=== PATIENT | female | born 1985 | race Hispanic/Latino ===

== ENCOUNTER 2017-12-04 22:45 | Inpatient (IN) | payer OTHER, MEDICAID ==
[2017-12-05] MEDS ORDERED: STADOL IV PRN (00:27)
[2017-12-05] MEDS ORDERED: ePHEDrine SULFATE IV PRN ×2 (00:27→03:13)
[2017-12-05] MEDS ORDERED: BRETHINE IVP PRN (00:27)
[2017-12-05] MEDS ORDERED: PHENERGAN PO PRN ×2 (00:27→09:09)
[2017-12-05] MEDS ORDERED: BRETHINE SUB-Q PRN (00:27)
[2017-12-05] MEDS ORDERED: XYLOCAINE 2% INFILTRATI ONE (00:27)
--- NOTE | 2017-12-05 00:27 | History and Physical Report ---
History of Present Illness Date of examination: 12/05/17 Date of admission: 12/04/17 23:26 History of present illness: Patient presented to labor and delivery for complaints of regular contractions since the morning of admission now intervals approximately 5-6 minutes. 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 no EDC Calculations EDC Confirmation: 12/06/2017 Past History : 5 Term Births: 3 Premature Births: 0 Living Children: 3 Para: 3 Mult. Births: 0 Prev : 0 Aborta: 1 Elect. Ab: 0 Spont. Ab: 1 # 1 Delivery date: 2007 Weeks Gestation: 40+5 labor: no Delivery type: Infant Sex: Female weight: 7#14 Comments: no complications # 2 Delivery date: 2009 Weeks Gestation: 10 Delivery type: SAB Comments: MAB, medically managed, no D&C # 3 Delivery date: 2010 Weeks Gestation: 40 labor: no Delivery type: Infant Sex: Female weight: 8#11 Comments: EIF and short limbs - no problems # 4 Delivery date: 02/04/2016 Weeks Gestation: 39 Delivery type: Vaginal Anesthesia type: epidural Delivery location: [facility] Sex: male weight: 8.38 Comments: none Past Medical History: Negative Past Medical History abnomal pap 2016 Past Medical History Abnormal PAP: positive, 2016 Family Hx: Family History of Hypertension - mother and father Social Hx: Patient is engaged Patient is single Smoking History: denies ETOH, drugs or smoking Infection History Hx of STD: none HIV Risk Eval: low risk Hepatitis B Risk Eval: low risk Personal hx. of genital herpes: no Partner hx. of genital herpes: no Rash, Viral, or Febrile illness since last LMP? no Varicella/Chicken Pox Status: Previous Disease Genetic History Congenital Heart Defect: Mom: no Dad: no Camila Disease: Mom: no Dad: no Thalassemia Mom: no Dad: no Neural Tube Defect Mom: yes Dad: no Comments: sister - clft Down's Syndrome Mom: no Dad: no Joe-Sachs Mom: no Dad: no Sickle Cell Disease/Trait Mom: no Dad: no Hemophilia Mom: no Dad: no Muscular Dystrophy Mom: no Dad: no Cystic Fibrosis Mom: no Dad: no Jasper Chorea Mom: no Dad: no Mental Retardation Mom: no Dad: no Fragile X Mom: no Dad: no Other Genetic/Chromosomal Disorder Mom: no Dad: no Child w/other defect Mom: no Dad: no Enviromental Exposures Xray Exposure: yes Medication, drug, or alcohol use since LMP: no Chemical/Other Exposure: no Exposure to Cat Liter: no Hx of Parvovirus (Fifth Disease): no Occupational Exposure to Children: none Current Allergies (reviewed today): No known allergies Past History Past Medical History: other (see HPI) Past Surgical History: other (see HPI) 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 (see 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) Family/Genetic History: other (see HPI) Social history: full code - Obstetrical History Expected Date of Delivery: 12/06/17 Actual Gestation: 39 Week(s) 6 Day(s) : 5 Para: 3 Hx # Term Pregnancies: 3 Number of Pregnancies: 0 Spontaneous Abortions: 1 Induced : 0 Number of Living Children: 3 Medications and Allergies Allergies Allergy/AdvReac Type Severity Reaction Status Date / Time No Known Allergies Allergy Verified 02/04/16 12:06 Home Medications Medication Instructions Recorded Confirmed Last Taken Type Ibuprofen [Motrin 800 MG tab] 800 mg PO TID PRN #30 tablet 02/04/16 Unknown Rx Lidocain2.5%/Prilocai2.5% [Emla] 5 gm TP PRN #1 tube 02/04/16 Unknown Rx Vit Calc,Iron,Folic 1 each PO DAILY 02/04/16 02/04/16 02/03/16 23:00 History [ Vitamins] - Vital Signs Vital signs: Vital Signs Temp Pulse Resp BP 98.6 F 76 16 108/61 12/04/17 23:07 12/04/17 23:07 12/04/17 23:07 12/04/17 23:07 Temp Pulse Resp BP Pulse Ox 98.6 F 84 16 109/63 97 12/04/17 23:07 12/05/17 00:24 12/04/17 23:07 12/05/17 00:20 12/05/17 00:24 - Physical Exam Breasts: Positive: deferred Cardiovascular: Regular rate Lungs: Positive: Normal air movement Abdomen: Positive: normal appearance, soft Genitourinary (Female): Positive: normal external genitalia, normal perenium Vulva: both: normal Vagina: Positive: normal moisture Uterus: Positive: enlarged Anus/Rectum: Positive: normal perianal skin Extremities: Positive: edema Deep Tendon Reflex Grade: Normal +2 - Obstetrical FHR: category 1 Uterine Contraction Pattern: Regular Uterine Tone Measurement Phase: Resting Uterine Contraction Intensity: Moderate Results Result Diagrams: 12/05/17 00:00 All other labs normal. Assessment and Plan - Patient Problems (1) 39 weeks gestation of Current Visit: No Status: Acute (2) Active labor at term Current Visit: No Status: Acute Plan to address problem: Admit and follow normal labor protocol will augment if necessary
[2017-12-05 00:40] LABS: Hematocrit 32.1 % (30.3-42.9); Hemoglobin 11.2 gm/dl (10.1-14.3); Mean Corpuscular HGB Conc 35 % (30-34); Mean Corpuscular Hemoglobin 27 pg (28-32); Mean Corpuscular Volume 79 fl (79-97); Platelet Count 272 K/mm3 (140-440); Red Blood Count 4.07 M/mm3 (3.65-5.03); Red Cell Distribution Width 17.6 % (13.2-15.2)
[2017-12-05] MEDS: LACTATED RINGERS 1,000 ML IV SCH ×2 (00:54→03:26)
[2017-12-05] MEDS ORDERED: PITOCin/NS 20 UNIT/1000ML DRIP 20 UNITS/1,000 ML BAG IV SCH (01:00)
[2017-12-05] MEDS ORDERED: NARCAN 2 MG/2 ML IV PRN (03:13)
--- NOTE | 2017-12-05 03:14 | Anesthesia Consultation ---
Anesthesia Consult and Med Hx Date of service: 12/05/17 - Airway Anesthetic Teeth Evaluation: Good ROM Head & Neck: Adequate Mental/Hyoid Distance: Adequate Mallampati Class: Class II Intubation Access Assessment: Probably Good - Pulmonary Exam CTA: Yes - Cardiac Exam Cardiac Exam: RRR - Pre-Operative Health Status ASA Pre-Surgery Classification: ASA2 Proposed Anesthetic Plan: Epidural - Pulmonary Hx Asthma: No COPD: No Hx Pneumonia: No - Cardiovascular System Hx Hypertension: No - Central Nervous System Hx Seizures: No Hx Psychiatric Problems: No - Endocrine Hx Renal Disease: No Hx End Stage Renal Disease: No Hx Hypothyroidism: No Hx Hyperthyroidism: No - Hematic Hx Anemia: No Hx Sickle Cell Disease: No - Other Systems Hx Alcohol Use: No
--- NOTE | 2017-12-05 03:54 | Event Note ---
Date: 12/05/17 Patient comfortable after epidural FHT reactive with occassional variable. Cx 7.5/80/-1. AROM clear FSE placed
[2017-12-05] MEDS ORDERED: fentaNYL-BUPIV 2 MCG/ML-0.125% 200 MCG/100 ML BAG EPIDURAL SCH (04:00)
[2017-12-05] MEDS ORDERED: XYLOCAINE 2%/ EPI 1:200,000 INFILTRATI ONE ×2 (04:17→04:25)
--- NOTE | 2017-12-05 04:25 | Event Note ---
Date: 12/05/17 Patient feeling pain with contractions. 10cc of lidocaine 2% with epi 1:200k given.
--- NOTE | 2017-12-05 06:43 | Procedure Note ---
OB Delivery Note - Delivery Date of Delivery: 12/05/17 Surgeon: STEPHANIE RANGEL Estimated blood loss: 300cc - Vaginal Delivery position: OA Delivery augmentation: rupture of membranes Delivery monitor: external FHT, external uterine, internal FHT Route of delivery: Delivery placenta: spontaneous Delivery cord: 3 umbilical vessels Episiotomy: none Delivery laceration: 1st degree (midline) Delivery repair: vicryl Anesthesia: epidural - Infant A at 1 minute: 8 at 5 minutes: 9 Infant Gender: Female
[2017-12-05] MEDS ORDERED: BENADRYL PO PRN (09:09)
[2017-12-05] MEDS ORDERED: TUCKS PAD TP PRN (09:09)
[2017-12-05] MEDS ORDERED: DULCOLAX PR PRN (09:09)
[2017-12-05] MEDS ORDERED: TYLENOL PO PRN (09:09)
[2017-12-05] MEDS ORDERED: SODIUM CHLORIDE FLUSH SYRINGE 10 ML IV NR (09:09)
[2017-12-05] MEDS ORDERED: LANSINOH TP PRN (09:09)
[2017-12-05] MEDS ORDERED: DERMOPLAST TP PRN (09:25)
[2017-12-05] MEDS ORDERED: PRENATAL VITAMIN PO SCH (10:00)
[2017-12-05] MEDS: NORCO 5/325 PO PRN (17:30)
[2017-12-05] MEDS: MOTRIN PO SCH (17:30)
[2017-12-05 18:56] LABS: Hematocrit 34.5 % (30.3-42.9); Hemoglobin 11.5 gm/dl (10.1-14.3)
[2017-12-05] MEDS ORDERED: MILK OF MAGNESIA PO PRN (22:00)
[2017-12-06] MEDS: NORCO 5/325 PO PRN (04:58)
[2017-12-06] MEDS ORDERED: BOOSTRIX IM ONE (06:00)
--- NOTE | 2017-12-06 07:24 | Discharge Summary ---
Providers - Providers Date of Admission: 12/04/17 23:26 Date of discharge: 12/06/17 (pt requests d/c today) Attending physician: STEPHANIE RANGEL 12/05/17 09:09 Consult to Suspension Cord Tier [CONS] Routine Reason For Exam: assistance with , SNS Primary care physician: STEPHANIE RANGEL Hospitalization Reason for admission: active labor Delivery: Episiotomy: none Laceration: none Incision: normal Other procedures: none complications: none Discharge diagnosis: IUP at term delivered [place] baby: female Hospital course: uncomplicated vaginal delivery Pt w/o complaint VSS FF below umb Lochia small perineum intact. H&H stable. Doing well s/p vag delivery P: d/c today with instructions RTO 4 weeks Desires IUD for BC Condition at discharge: Good Disposition: DC-01 TO HOME OR SELFCARE - Discharge Diagnoses (1) Spontaneous vaginal delivery Status: Acute Comment: RTO 4 weeks PP care Plan - Provider Discharge Summary Activity: routine, no sex for 6 weeks, no heavy lifting 4 weeks, no strenuous exercise Diet: routine Instructions: routine Additional instructions: [] Smoking cessation referral if applicable(refer to patient education folder for contact #) [] Refer to [facility]'s [facility] Booklet Call your doctor immediately for: * Fever > 100.5 * Heavy vaginal bleeding ( >1 pad per hour) * Severe persistent headache * Shortness of breath * Reddened, hot, painful area to leg or breast * Drainage or odor from incision. * Keep incision clean and dry at all times and follow doctor's instructions regarding bathing/showering - Follow up plan Follow up: STEPHANIE RANGEL MD [Primary Care Provider] - 01/05/18 (Congratulations! Please call [phone] to schedule your visit in 4 weeks. Take medications as prescribed. Continue your vitamins. Call with concerns.)
[2017-12-06] MEDS: MOTRIN PO SCH (12:05)
[2017-12-06 13:24] VITALS: BP 96/47
== END 2017-12-06 13:35 | disposition home or self-care (01) | DRG 775 ==
LOC: TRG 22:45 → LD 23:26 → OB 12-05 08:15
PROVIDERS: ADMIT Obstetrics & Gynecology; ATTEND Obstetrics & Gynecology
PROC: 10E0XZZ Delivery of Products of Conception, External Approach (ICD-10-PCS; principal; 2017-12-05)
PROC: 10907ZC Drainage of Amniotic Fluid, Therapeutic from Products of Conception, Via Natural or Artificial Opening (ICD-10-PCS; 2017-12-05)
PROC: 0HQ9XZZ Repair Perineum Skin, External Approach (ICD-10-PCS; 2017-12-05)
PROC: 3E0R3BZ Introduction of Anesthetic Agent into Spinal Canal, Percutaneous Approach (ICD-10-PCS; 2017-12-05)
PROC: 00HU33Z Insertion of Infusion Device into Spinal Canal, Percutaneous Approach (ICD-10-PCS; 2017-12-05)
PROC: 3E0234Z Introduction of Serum, Toxoid and Vaccine into Muscle, Percutaneous Approach (ICD-10-PCS; 2017-12-06)
DX: O76 Abnormality in fetal heart rate and rhythm complicating labor and delivery (principal); O70.0 First degree perineal laceration during delivery; Z3A.39 39 weeks gestation of pregnancy; Z37.0 Single live birth; Z23 Encounter for immunization
CPT/HCPCS: 36415; 59025; 85014; 85018; 85027; 86592; 86850; 86900; 86901; 90471; 90715; 96360; 96361; 99211; A6250; G0463; J2590; J7120

== ENCOUNTER 2018-01-28 05:45 | Day surgery (SDC) | payer MEDICAID, OTHER ==
--- NOTE | 2018-01-27 22:00 | History and Physical Report ---
History of Present Illness Date of examination: 01/26/18 History of present illness: Patient has been reassessed/reevaluated. H&P has been reviewed. No interval changes. Patient desires sterilization.Discuss the permanency of sterilization. High risk of regret and 0.5 to 1% risk of failure. Discussed the different risk of abdominal versus vaginal approaches Patient desires laparoscopic tubal ligation Vital Signs: Patient Profile: 32 Years Old Female Height: 63 inches (160.02 cm) Weight: 145 pounds (65.91 kg) BMI: 25.68 BSA: 1.69 Past History : 5 Term Births: 4 Premature Births: 0 Living Children: 4 Para: 4 Mult. Births: 0 Prev : 0 Aborta: 1 Elect. Ab: 0 Spont. Ab: 1 Ectopics: 0 # 1 Delivery date: 2007 Weeks Gestation: 40+5 labor: no Delivery type: Sex: Female weight: 7#14 Comments: no complications # 2 Delivery date: 2009 Weeks Gestation: 10 Delivery type: SAB Comments: MAB, medically managed, no D&C # 3 Delivery date: 2010 Weeks Gestation: 40 labor: no Delivery type: Infant Sex: Female weight: 8#11 Comments: EIF and short limbs - no problems # 4 Delivery date: 02/04/2016 Weeks Gestation: 39 Delivery type: Vaginal Anesthesia type: epidural Delivery location: [facility] Sex: male weight: 8.38 Comments: none # 5 Delivery date: 12/05/2017 Weeks Gestation: 39 Delivery type: Vaginal Hours of labor: 12 Anesthesia type: epidural Delivery location: [facility] Sex: female weight: 7.50 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 of genital herpes: no Partner hx. of genital herpes: no Hx of STD: none Current Allergies (reviewed today): No known allergies Past Medical History: Negative Past Medical History abnomal pap 2016 Past Surgical History: negative Family History Summary: Mother (biol.) - Has Family History of CVA or Stroke - Entered On: 06/22/2014 General Comments - FH: Family History of Hypertension - mother and father Social History: Patient is engaged Patient is single Smoking History: denies ETOH, drugs or smoking Risk Factors: Smoked Tobacco Use: Never smoker Smokeless Tobacco Use: Never Passive smoke exposure: no Drug use: no HIV high-risk behavior: no Alcohol use: yes Exercise: no Seatbelt use: 100 % Review of Systems General Complains of fatigue. Denies fever, chills, sweats, anorexia, weakness, malaise, weight loss and sleep disorder. Denies vaginal discharge, incontinence, dysuria, hematuria, urinary frequency, amenorrhea, menorrhagia, abnormal vaginal bleeding, pelvic pain, genital sores, decreased libido, painful periods, painful sex, urinary urgency, hot flashes, vaginal dryness, vaginal itching and vaginal odor. CV Denies chest pains, palpitations, syncope, dyspnea on exertion, orthopnea, PND and peripheral edema. Resp Denies cough, dyspnea at rest, excessive sputum, hemoptysis, wheezing and pleurisy. GI Denies nausea, vomiting, diarrhea, constipation, change in bowel habits, abdominal pain, melena, hematochezia, jaundice, gas/bloating, indigestion/ heartburn, dysphagia and odynophagia. Breast Denies left breast lump, right breast lump, nipple discharge, bloody discharge from nipple, breast pain, abnormal mammogram and breast enlargement. Psych Denies depression, anxiety, irritability and mood swings. Past History Past Medical History: other (See HPI) Past Surgical History: Other (See HPI) Family history: other (See HPI) Medications and Allergies Allergies Allergy/AdvReac Type Severity Reaction Status Date / Time No Known Allergies Allergy Verified 01/27/18 10:30 Home Medications Medication Instructions Recorded Confirmed Last Taken Type No Known Home Medications [No 01/27/18 01/27/18 Unknown History Reported Home Medications] Exam - Physical Exam Narrative exam: HEENT: normocephalic, no lesions or deformities Skin no abnormal lesions or rashes Chest: respiratory effort normal, clear to auscultation CV: regular, normal S1-S2, no murmur, no rub, no gallop Abdomen: soft, non-tender, no masses, bowel sounds normal Musculoskeletal: grossly normal ROM in joints, no joint tenderness or muscle weakness Neuro: no gross anomalities Extremities: no discoloration or edema 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 Cervix: normal appearance, no lesions. Uterus: normal size and position, midline, mobile Adnexae: no masses or tenderness Rectovaginal: exam defered Assessment and Plan - Patient Problems (1) Encounter for sterilization Current Visit: No Status: Acute Plan to address problem: Discuss the risks of the surgery including infection, bleeding possibly heavy enough to require a blood transfusion, possible damage to adjacent organs. Discuss permanent nature of the procedure and the 1% failure rate. Discuss of possibility of laparotomy needed
[2018-01-28] MEDS ORDERED: MARCAINE 0.5% INFILTRATI ONE ×2 (06:22→08:10)
[2018-01-28] MEDS ORDERED: DECADRON IV ONE (07:14)
[2018-01-28] MEDS ORDERED: DIPRIVAN 10 MG/ML IV ONE (07:17)
[2018-01-28] MEDS ORDERED: DILAUDID ONE (07:17)
[2018-01-28] MEDS ORDERED: XYLOCAINE MPF 2% ONE (07:17)
[2018-01-28] MEDS ORDERED: ZEMURON IV ONE (07:17)
[2018-01-28] MEDS ORDERED: PEPCID IV ONE (07:21)
[2018-01-28] MEDS: LACTATED RINGERS 1,000 ML IV SCH ×2 (07:22→10:02)
[2018-01-28] MEDS ORDERED: DILAUDID IV PRN ×2 (07:23)
[2018-01-28] MEDS ORDERED: TORADOL IV PRN (07:23)
[2018-01-28] MEDS ORDERED: ZOFRAN IV PRN (07:23)
[2018-01-28] MEDS ORDERED: PERCOCET 5/325 PO PRN (07:23)
--- NOTE | 2018-01-28 07:23 | Anesthesia Consultation ---
Anesthesia Consult and Med Hx Date of service: 01/28/18 - Airway Anesthetic Teeth Evaluation: Good ROM Head & Neck: Adequate Mental/Hyoid Distance: Adequate Mallampati Class: Class I Intubation Access Assessment: Good - Pulmonary Exam CTA: Yes - Cardiac Exam Cardiac Exam: RRR - Pre-Operative Health Status ASA Pre-Surgery Classification: ASA1 Proposed Anesthetic Plan: General (PONV precautions) - Pulmonary Hx Asthma: No COPD: No Hx Pneumonia: No - Cardiovascular System Hx Hypertension: No Hx Heart Murmur: Yes (As infant- resolved) - Central Nervous System Hx Seizures: No Hx Psychiatric Problems: No - Endocrine Hx Renal Disease: No Hx End Stage Renal Disease: No Hx Hypothyroidism: No Hx Hyperthyroidism: No - Hematic Hx Anemia: Yes (With -resolved) Hx Sickle Cell Disease: No - Other Systems Hx Alcohol Use: No Hx Cancer: No
[2018-01-28] MEDS ORDERED: BLOXIVERZ ONE (07:55)
[2018-01-28] MEDS ORDERED: ROBINUL ONE (07:55)
[2018-01-28] MEDS ORDERED: PEPCID IV NR (08:00)
--- NOTE | 2018-01-28 08:15 | Short Stay Summary ---
Short Stay Documentation Date of service: 01/28/18 - History H&P: dictated Past Medical History: other (See HPI) Past Surgical History: Other (See HPI) - Allergies and Medications Current Medications: Allergies No Known Allergies Allergy (Verified 01/27/18 10:30) Home Medications Medication Instructions Recorded Confirmed Last Taken Type oxyCODONE /ACETAMINOPHEN [Percocet 1 - 2 tab PO Q4H PRN #30 tablet 01/28/18 Unknown Rx 5/325 mg] Active Medications Famotidine (Pepcid) 20 mg IV PREOP NR Stop: 01/28/18 23:59 Last Admin: 01/28/18 07:22 Dose: 20 mg Hydromorphone HCl (Dilaudid) 0.25 mg IV Q10MIN PRN PRN Reason: Pain, Moderate (4-6) Stop: 01/28/18 16:00 Hydromorphone HCl (Dilaudid) 0.5 mg IV Q10MIN PRN PRN Reason: Pain , Severe (7-10) Stop: 01/28/18 16:00 Lactated Ringer's (Lactated Ringers) 1,000 mls @ 75 mls/hr IV DIRECT MARIELLA Last Admin: 01/28/18 07:22 Dose: 75 mls/hr Ketorolac Tromethamine (Toradol) 30 mg IV ONCE PRN PRN Reason: Pain, Moderate (4-6) Stop: 01/28/18 16:00 Ondansetron HCl (Zofran) 4 mg IV ONCE PRN PRN Reason: Nausea And Vomiting Stop: 01/28/18 16:00 Oxycodone/Acetaminophen (Percocet 5/325) 1 tab PO ONCE PRN PRN Reason: Pain, Moderate (4-6) Stop: 01/28/18 16:00 - Brief post op/procedure progress note Date of procedure: 01/28/18 (see dictated operative note) - Hospital course Hospital course: Patient was admitted underwent the above him procedure without any complications. Patient will be discharged with follow-up in office in 1-2 weeks for postop check. - Disposition Condition at discharge: Good Disposition: DC-01 TO HOME OR SELFCARE - Discharge Diagnoses (1) Encounter for sterilization Status: Acute Short Stay Discharge Plan Activity: advance as tolerated Diet: regular Wound: open to air Additional Instructions: Patient is a fever chills nausea vomiting or pain uncontrolled by pain medicine she is scheduled to return to office in 1 week Follow up with: PRIMARY CARE, [Primary Care Provider] - 7 Days Prescriptions: oxyCODONE /ACETAMINOPHEN [Percocet 5/325 mg] 1 - 2 tab PO Q4H PRN #30 tablet PRN Reason: Pain, Moderate
--- NOTE | 2018-01-28 08:17 | Operative Report ---
Operative Report Operative Report: Pre-operative diagnosis: Patient desires permanent sterilization Post-operative diagnosis: Same Procedure name(s): Laparoscopic bilateral tubal ligation with Falope-Rings Surgeon: Kenneth Rios MD Rooming House Operator: [] Anesthesia: General endotracheal EBL: Minimal Complications: None Findings: Patient with uterus approximately 8-10 weeks in size with normal fallopian tubes bilaterally Specimen(s): None Patient was brought in the operating room. General anesthesia was induced without difficulty. She was placed in dorsal lithotomy position. Prepped and draped in usual sterile manner. Her urinary bladder with was emptied with a red rubber catheter. Speculum placed in her vagina and Sargis uterine manipulator was placed for uterine manipulation. Attention was then switched to the patient's abdomen. An infra-umbilical incision was made with a scalpel. This incision was spread with a hemostat. A 5 mm trocar was placed in this incision while lifting high the abdominal wall. Intra-abdominal presence was verified directly with the laparoscope. The patient was then insufflated to approximately 2.5 L of CO2 gas. The patient's findings as noted above. An accessory puncture was made suprapubically. The 8 mm trocar was placed through this incision under direct visualization with no evidence of internal organ damage. Each of the fallopian tube were identified by its fimbriated end. A portion approximately 1-2 cm from each cornua was grasped with the Falope ring applicator. Falope-Rings were placed without any difficulty bilaterally. At this time all instruments were removed. The patient was deinsufflated. The skin incisions were closed subcuticular with 4-0 Monocryl. Marcaine was given subcuticularly for postoperative pain relief. The patient tolerated procedure well. She was awakened in the operating room and accompanied to the recovery room in good condition.
[2018-01-28] MEDS ORDERED: DILAUDID IV ONE (11:01)
[2018-01-28 16:47] VITALS: BP 111/63
== END 2018-01-28 12:20 | disposition home or self-care (01) ==
LOC: OR 05:45
PROVIDERS: ATTEND Obstetrics & Gynecology
DX: Z30.2 Encounter for sterilization (principal); Z72.89 Other problems related to lifestyle; Z79.899 Other long term (current) drug therapy; Z98.890 Other specified postprocedural states
CPT/HCPCS: 58671; 81025; J1100; J1170; J2405; J2704; J2710; J7120